=== PATIENT | male | born 1975 | race Two or more races ===

== ENCOUNTER 2017-07-14 21:10 | Emergency (ER) | payer MEDICAID ==
[~2017-07-14] VITALS: Ht 180.3 cm; Wt 108.9 kg
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
--- NOTE | 2017-07-14 23:09 | NUR ---
DR. LEONG AT BEDSIDE SPEKAING TO PT
--- NOTE | 2017-07-14 23:26 | NUR ---
PT TO CT.
[2017-07-14] MEDS ORDERED: HYDROCODONE/APAP 5/325MG 1 EACH TABLET ONE (23:37)
[2017-07-14] MEDS ORDERED: CYCLOBENZAPRINE 10 MG TABLET ONE (23:37)
[2017-07-14] MEDS ORDERED: ONDANSETRON 4 MG TAB.RAPDIS ONE (23:38)
[2017-07-14] MEDS: HYDROCODONE/APAP 5/325MG 1 EACH TABLET PO ONE (23:42)
[2017-07-14] MEDS: CYCLOBENZAPRINE 10 MG TABLET PO ONE (23:42)
[2017-07-14] MEDS: ONDANSETRON 4 MG TAB.RAPDIS SL ONE (23:43)
--- NOTE | 2017-07-14 23:45 | NUR ---
PT RETURNED FROM CT.
--- NOTE | 2017-07-15 00:40 | NUR ---
DR. LEONG AT BEDSIDE SPEAKING TO PT REGARDING RESULTS.
--- NOTE | 2017-07-15 00:47 | NUR ---
Patient discharged to home in stable condition. Written and verbal after care instructions given. Patient verbalizes understanding of instruction. ambulatory with a steady gait. pt instructed not to drive. per verbalize understanding. accompanied by family
[2017-07-15 00:50] VITALS: BP 127/68
== END 2017-07-15 00:51 | disposition home or self-care (01) ==
LOC: ER 21:10
DX: S16.1XXA Strain of muscle, fascia and tendon at neck level, initial encounter (principal); Z98.890 Other specified postprocedural states; Z88.0 Allergy status to penicillin; V49.59XA Passenger injured in collision with other motor vehicles in traffic accident, initial encounter; Y93.89 Activity, other specified; Y92.413 State road as the place of occurrence of the external cause; Y99.8 Other external cause status
CPT/HCPCS: 72125-TC; A4606; Q0162; Z7610

== ENCOUNTER 2021-05-07 23:35 | Emergency (ER) | payer SELFPAY ==
[~2021-05-07] VITALS: Ht 167.6 cm; Wt 65.8 kg
[2021-05-08 01:28] LABS: BASOPHILS % (AUTO) 0.6 % (0.0-2.0); EOSINOPHILS % (AUTO) 1.2 % (0.0-6.0); HEMATOCRIT 46 % (39-51); HEMOGLOBIN 15.9 g/dL (13.5-17.5); LYMPHOCYTES % (AUTO) 39.4 % (20.0-44.0); MEAN CORPUSCULAR HGB CONC 35 g/dl (31.0-36.0); MEAN CORPUSCULAR VOLUME 96 fL (80-96); MONOCYTES # (AUTO) 0.4 K/uL (0.1-1.30); MONOCYTES % (AUTO) 4.9 % (2.0-12.0); NEUTROPHILS # (AUTO) 4.1 K/uL (1.8-8.9); NEUTROPHILS % (AUTO) 53.9 % (43.0-81.0); PLATELET COUNT (AUTO) 243 K/uL (150-450); RED BLOOD CELL COUNT(AUTO) 4.81 MIL/uL (4.5-6.0); WHITE BLOOD COUNT (AUTO) 7.7 K/uL (4.3-11.0)
[2021-05-08 01:35] LABS: CALCIUM, SERUM 8.2 mg/dL (8.5-10.1); CREATININE 0.8 mg/dL (0.6-1.3); POTASSIUM 3.6 mmol/L (3.5-5.1)
[2021-05-08 01:43] LABS: ALBUMIN 4.1 g/dL (3.4-5.0); BILIRUBIN,DIRECT 0.2 mg/dL (0.0-0.2); BILIRUBIN,TOTAL 0.6 mg/dL (0.2-1.0); TOTAL PROTEIN, SERUM 7.4 g/dL (6.4-8.2)
--- NOTE | 2021-05-08 02:00 | NUR ---
URINE SPECIMEN COLLECTED AND SENT TO LAB.
[2021-05-08 02:33] VITALS: BP 130/88
--- NOTE | 2021-05-08 02:33 | NUR ---
Patient discharged to home in stable condition. Written and verbal after care instructions given. Patient verbalizes understanding of instruction.
[2021-05-08 03:27] LABS: BILIRUBIN,URINE NEGATIVE (NEGATIVE); COLOR,URINE YELLOW (YELLOW); LEUKOCYTE ESTERASE ,URINE NEGATIVE (NEGATIVE); NITRITE, URINE NEGATIVE (NEGATIVE); PROTEIN,URINE NEGATIVE (NEGATIVE); UGLUCOSE NEGATIVE (NEGATIVE); UROBILINOGEN,URINE 0.2 EU/dL (0.2)
== END 2021-05-08 02:37 | disposition home or self-care (01) ==
LOC: ER 23:38
DX: F10.129 Alcohol abuse with intoxication, unspecified (principal); R00.0 Tachycardia, unspecified; Z98.890 Other specified postprocedural states; Z88.0 Allergy status to penicillin; Z60.2 Problems related to living alone; Y90.8 Blood alcohol level of 240 mg/100 ml or more
CPT/HCPCS: 36415; 80048-TC; 80076-TC; 84484-TC; 85025-TC; G0480